=== PATIENT | female | born 1930 | race Caucasian/White ===

== ENCOUNTER 2017-11-11 14:58 | Inpatient (IN) | payer MEDICARE, BC ==
[~2017-11-11] VITALS: Ht 152.4 cm; Wt 47.0 kg
[2017-11-11] MEDS ORDERED: normal saline 1000ML IV soln IVB ONE (15:10)
[2017-11-11 15:31] LABS: BASOPHILS % (AUTO) 0.4 % (0-1); EOSINOPHILS # (AUTO) 0.3 X10'3 (0-0.9); EOSINOPHILS % (AUTO) 3.9 % (0-6); HEMATOCRIT 35.7 % (35.0-45.0); HEMOGLOBIN 11.7 g/dl (12.0-16.0); LYMPHOCYTES # (AUTO) 0.9 X10'3 (1.1-4.8); LYMPHOCYTES % (AUTO) 13.9 % (21-51); MEAN CORPUSCULAR HEMOGLOBIN 23.9 PG (27.0-31.0); MEAN CORPUSCULAR HGB CONC 32.8 % (33.0-36.5); MEAN CORPUSCULAR VOLUME 73.1 FL (78-98); MEAN PLATELET VOLUME 8.8 FL (7.4-10.4); MONOCYTES # (AUTO) 0.6 X10'3 (0-0.9); MONOCYTES % (AUTO) 9.5 % (2-12); NEUTROPHILS # (AUTO) 4.8 X10'3 (1.8-7.7); NEUTROPHILS % (AUTO) 72.3 % (42-75); PLATELET COUNT 327 X10'3 (140-440); RED BLOOD COUNT 4.88 X10'6 (4.20-5.60); RED CELL DISTRIBUTION WIDTH 17.1 % (11.5-14.5); WHITE BLOOD COUNT 6.7 X10'3 (4.5-11.0)
[2017-11-11 15:44] LABS: ALANINE AMINOTRANSFERASE 7 U/L (12-78); ALBUMIN 2.1 G/DL (3.4-5.0); ALBUMIN/GLOBULIN RATIO 0.5 (1.1-1.5); ALKALINE PHOSPHATASE 66 IU/L (46-116); ANION GAP 8 (8-16); ASPARTATE AMINO TRANSFERASE 15 U/L (10-37); BILIRUBIN,TOTAL 0.3 MG/DL (0.1-1.0); BLOOD UREA NITROGEN 25 MG/DL (7-18); BUN/CREATININE RATIO 28.1 (6.6-38.0); CALCIUM 8.6 MG/DL (8.5-10.1); CHLORIDE 103 MMOL/L (99-107); CREATININE 0.89 MG/DL (0.40-0.90); GLUCOSE 140 MG/DL (70-104); SODIUM 143 MMOL/L (135-145); TOTAL CARBON DIOXIDE 32.4 MMOL/L (24-32); eGFR 60 ML/MIN
[2017-11-11] MEDS ORDERED: NO HOME MEDS (15:45)
[2017-11-11] MEDS ORDERED: potassium Cl 20 mEq SR tablet PO ONE (16:05)
[2017-11-11] MEDS ORDERED: magnesium 1gm/100ml D5W IVPB 100 ML IV PRN (17:35)
[2017-11-11] MEDS ORDERED: acetaminophen 325mg tablet PO PRN ×2 (17:35)
[2017-11-11] MEDS ORDERED: magnesium 4gm in 100ml NS 100 ML IV PRN (17:35)
[2017-11-11] MEDS ORDERED: ondansetron/PF 4mg/2ml inj IV PRN (17:35)
[2017-11-11] MEDS ORDERED: Potassium Cl inj 20 MEQ in normal saline 1000ml 990 ML IV SCH (17:35)
[2017-11-11] MEDS ORDERED: magnesium Cl slow-release 64mg tablet PO PRN (17:35)
[2017-11-11] MEDS ORDERED: potassium Cl 20 mEq SR tablet PO PRN ×2 (17:35)
[2017-11-11] MEDS ORDERED: potassium Cl 40MEQ/NS 500ml 500 ML IV PRN ×2 (17:35)
[2017-11-11] MEDS ORDERED: mag hydrox/Alum hydrox/simeth 30ml oral suspension PO PRN (17:35)
[2017-11-11] MEDS ORDERED: magnesium hydroxide 30ml (MOM) UD suspension PO PRN (17:35)
[2017-11-11 20:30] VITALS: BP 188/78
[2017-11-11] MEDS ORDERED: temazepam 15mg capsule PO PRN (21:00)
[2017-11-11] MEDS: potassium Cl 20mEq in NS 1,000 ML IV SCH (21:13)
[2017-11-11 21:15] VITALS: BP 174/70
[2017-11-11 22:00] VITALS: BP 137/79
[2017-11-11 23:00] VITALS: BP 152/70
[2017-11-12 05:40] LABS: HEMATOCRIT 34.2 % (35.0-45.0); HEMOGLOBIN 11.1 g/dl (12.0-16.0); MEAN CORPUSCULAR HGB CONC 32.5 % (33.0-36.5); MEAN CORPUSCULAR VOLUME 73.8 FL (78-98); MEAN PLATELET VOLUME 9.2 FL (7.4-10.4); PLATELET COUNT 241 X10'3 (140-440); RED BLOOD COUNT 4.62 X10'6 (4.20-5.60); RED CELL DISTRIBUTION WIDTH 17.2 % (11.5-14.5); WHITE BLOOD COUNT 5.5 X10'3 (4.5-11.0)
[2017-11-12 06:10] LABS: ANION GAP 11 (8-16); BLOOD UREA NITROGEN 20 MG/DL (7-18); BUN/CREATININE RATIO 24.7 (6.6-38.0); CALCIUM 8.3 MG/DL (8.5-10.1); CHLORIDE 109 MMOL/L (99-107); CREATININE 0.81 MG/DL (0.40-0.90); GLUCOSE 103 MG/DL (70-104); MAGNESIUM 1.7 MG/DL (1.5-2.4); SODIUM 146 MMOL/L (135-145); eGFR 67 ML/MIN
[2017-11-12 06:57] LABS: HEMOGLOBIN A1C 6.9 % (4.5-6.2)
[2017-11-12 07:27] VITALS: BP 138/91
[2017-11-12] MEDS: K and/or MAG REPLACEMENT MC SCH (08:00)
[2017-11-12] MEDS ORDERED: levoFLOXACIN-Levaquin 500mg/D5 100 ML IV SCH (08:50)
[2017-11-12 11:56] VITALS: BP 154/74
[2017-11-12] MEDS: potassium Cl 20mEq in NS 1,000 ML IV SCH (13:01)
[2017-11-12] MEDS: levoFLOXACIN 500mg tablet PO SCH (16:18)
[2017-11-12 20:00] VITALS: BP 123/56
[2017-11-13] VITALS: BP 137/52
[2017-11-13 06:02] LABS: ALBUMIN 1.9 G/DL (3.4-5.0); ANION GAP 8 (8-16); BLOOD UREA NITROGEN 15 MG/DL (7-18); BUN/CREATININE RATIO 23.4 (6.6-38.0); CALCIUM 7.8 MG/DL (8.5-10.1); CHLORIDE 105 MMOL/L (99-107); CREATININE 0.64 MG/DL (0.40-0.90); GLUCOSE 125 MG/DL (70-104); MAGNESIUM 1.5 MG/DL (1.5-2.4); POTASSIUM 4.1 MMOL/L (3.5-5.1); SODIUM 139 MMOL/L (135-145); eGFR 88 ML/MIN
[2017-11-13 06:09] LABS: BASOPHILS % (AUTO) 0.1 % (0-1); EOSINOPHILS # (AUTO) 0.2 X10'3 (0-0.9); EOSINOPHILS % (AUTO) 3.7 % (0-6); HEMATOCRIT 30.1 % (35.0-45.0); HEMOGLOBIN 9.6 g/dl (12.0-16.0); LYMPHOCYTES # (AUTO) 0.7 X10'3 (1.1-4.8); LYMPHOCYTES % (AUTO) 11.7 % (21-51); MEAN CORPUSCULAR HEMOGLOBIN 23.5 PG (27.0-31.0); MEAN CORPUSCULAR VOLUME 73.3 FL (78-98); MEAN PLATELET VOLUME 9.1 FL (7.4-10.4); MONOCYTES # (AUTO) 0.7 X10'3 (0-0.9); MONOCYTES % (AUTO) 12.3 % (2-12); NEUTROPHILS # (AUTO) 4.4 X10'3 (1.8-7.7); NEUTROPHILS % (AUTO) 72.2 % (42-75); PLATELET COUNT 260 X10'3 (140-440); RED BLOOD COUNT 4.11 X10'6 (4.20-5.60); RED CELL DISTRIBUTION WIDTH 17.1 % (11.5-14.5)
[2017-11-13 06:45] VITALS: BP 128/53
[2017-11-13] MEDS: K and/or MAG REPLACEMENT MC SCH (07:23)
[2017-11-13 11:00] VITALS: BP 106/51
[2017-11-13] MEDS: levoFLOXACIN 500mg tablet PO SCH (11:19)
[2017-11-13 18:00] VITALS: BP 130/51
[2017-11-13] MEDS: lactobacillus rhamnosus 10,000 MMU CELLS/CAPSULE PO SCH (19:23)
[2017-11-14] VITALS: BP 126/78
[2017-11-14 06:30] LABS: ALBUMIN 1.9 G/DL (3.4-5.0); ANION GAP 9 (8-16); BLOOD UREA NITROGEN 14 MG/DL (7-18); BUN/CREATININE RATIO 18.9 (6.6-38.0); CALCIUM 8.1 MG/DL (8.5-10.1); CHLORIDE 106 MMOL/L (99-107); CREATININE 0.74 MG/DL (0.40-0.90); GLUCOSE 90 MG/DL (70-104); MAGNESIUM 1.6 MG/DL (1.5-2.4); POTASSIUM 3.6 MMOL/L (3.5-5.1); SODIUM 142 MMOL/L (135-145); TOTAL CARBON DIOXIDE 27.5 MMOL/L (24-32); eGFR 74 ML/MIN
[2017-11-14 06:44] LABS: HEMOGLOBIN 10.3 g/dl (12.0-16.0); MEAN CORPUSCULAR HEMOGLOBIN 23.9 PG (27.0-31.0); MEAN CORPUSCULAR HGB CONC 32.1 % (33.0-36.5); MEAN CORPUSCULAR VOLUME 74.6 FL (78-98); MEAN PLATELET VOLUME 9.6 FL (7.4-10.4); PLATELET COUNT 264 X10'3 (140-440); RED CELL DISTRIBUTION WIDTH 17.6 % (11.5-14.5); WHITE BLOOD COUNT 5.7 X10'3 (4.5-11.0)
[2017-11-14 07:00] VITALS: BP 148/80
[2017-11-14] MEDS: K and/or MAG REPLACEMENT MC SCH (07:54)
[2017-11-14] MEDS: lactobacillus rhamnosus 10,000 MMU CELLS/CAPSULE PO SCH ×2 (08:42→19:37)
[2017-11-14] MEDS: levoFLOXACIN 500mg tablet PO SCH (11:09)
[2017-11-14] MEDS ORDERED: traMADol 50MG tablet PO PRN (11:30)
[2017-11-14 18:00] VITALS: BP 108/50
[2017-11-15] VITALS: BP 133/57
[2017-11-15 06:17] LABS: ALBUMIN 1.9 G/DL (3.4-5.0); ANION GAP 8 (8-16); BLOOD UREA NITROGEN 15 MG/DL (7-18); BUN/CREATININE RATIO 18.1 (6.6-38.0); CALCIUM 8.6 MG/DL (8.5-10.1); CHLORIDE 105 MMOL/L (99-107); CREATININE 0.83 MG/DL (0.40-0.90); GLUCOSE 110 MG/DL (70-104); MAGNESIUM 1.6 MG/DL (1.5-2.4); POTASSIUM 3.4 MMOL/L (3.5-5.1); SODIUM 142 MMOL/L (135-145); TOTAL CARBON DIOXIDE 29.4 MMOL/L (24-32); eGFR 65 ML/MIN
[2017-11-15 06:22] LABS: HEMATOCRIT 32.9 % (35.0-45.0); HEMOGLOBIN 10.7 g/dl (12.0-16.0); MEAN CORPUSCULAR HGB CONC 32.5 % (33.0-36.5); MEAN CORPUSCULAR VOLUME 73.7 FL (78-98); MEAN PLATELET VOLUME 9.3 FL (7.4-10.4); PLATELET COUNT 273 X10'3 (140-440); RED BLOOD COUNT 4.47 X10'6 (4.20-5.60); RED CELL DISTRIBUTION WIDTH 17.5 % (11.5-14.5); WHITE BLOOD COUNT 5.9 X10'3 (4.5-11.0)
[2017-11-15 07:00] VITALS: BP 134/65
[2017-11-15] MEDS: lactobacillus rhamnosus 10,000 MMU CELLS/CAPSULE PO SCH ×2 (07:38→19:31)
[2017-11-15] MEDS: enoxaparin 40mg/0.4ml syringe SUBCUT SCH (07:38)
[2017-11-15] MEDS: K and/or MAG REPLACEMENT MC SCH (08:00)
[2017-11-15] MEDS ORDERED: potassium Cl 20 mEq SR tablet PO STA (11:48)
[2017-11-15 12:37] VITALS: BP 145/64
[2017-11-15] MEDS ORDERED: levoFLOXACIN 500mg tablet PO ONE (12:55)
[2017-11-15 18:00] VITALS: BP 120/65
[2017-11-16] VITALS: BP_SYST 137; BP_DIAS 50; BP_DIAS 60
[2017-11-16 05:07] LABS: HEMATOCRIT 31.2 % (35.0-45.0); HEMOGLOBIN 10.1 g/dl (12.0-16.0); MEAN CORPUSCULAR HEMOGLOBIN 23.9 PG (27.0-31.0); MEAN CORPUSCULAR HGB CONC 32.3 % (33.0-36.5); PLATELET COUNT 271 X10'3 (140-440); RED BLOOD COUNT 4.22 X10'6 (4.20-5.60); RED CELL DISTRIBUTION WIDTH 17.7 % (11.5-14.5); WHITE BLOOD COUNT 5.6 X10'3 (4.5-11.0)
[2017-11-16 05:18] LABS: ALBUMIN 1.9 G/DL (3.4-5.0); ANION GAP 8 (8-16); BLOOD UREA NITROGEN 15 MG/DL (7-18); BUN/CREATININE RATIO 18.5 (6.6-38.0); CALCIUM 8.5 MG/DL (8.5-10.1); CHLORIDE 105 MMOL/L (99-107); CREATININE 0.81 MG/DL (0.40-0.90); GLUCOSE 113 MG/DL (70-104); MAGNESIUM 1.7 MG/DL (1.5-2.4); POTASSIUM 3.7 MMOL/L (3.5-5.1); SODIUM 143 MMOL/L (135-145); TOTAL CARBON DIOXIDE 30.3 MMOL/L (24-32); eGFR 67 ML/MIN
[2017-11-16 07:00] VITALS: BP 128/74
[2017-11-16] MEDS: K and/or MAG REPLACEMENT MC SCH (07:09)
[2017-11-16] MEDS: lactobacillus rhamnosus 10,000 MMU CELLS/CAPSULE PO SCH ×2 (08:19→20:15)
[2017-11-16] MEDS: enoxaparin 40mg/0.4ml syringe SUBCUT SCH (08:26)
[2017-11-16] MEDS ORDERED: levoFLOXACIN 500mg tablet PO SCH (11:00)
[2017-11-16 12:00] VITALS: BP 119/97
[2017-11-16 20:00] VITALS: BP 133/52
[2017-11-16 23:30] VITALS: BP 133/65
[2017-11-17 07:00] VITALS: BP 149/66
[2017-11-17] MEDS: K and/or MAG REPLACEMENT MC SCH (07:40)
[2017-11-17] MEDS: lactobacillus rhamnosus 10,000 MMU CELLS/CAPSULE PO SCH (08:44)
[2017-11-17] MEDS: enoxaparin 40mg/0.4ml syringe SUBCUT SCH (08:44)
[2017-11-17 11:00] VITALS: BP 103/41
[2017-11-17] MEDS ORDERED: levoFLOXACIN 250mg tablet PO SCH (11:00)
[2017-11-17] MEDS ORDERED: TRAM50TA2 PO (13:17)
== END 2017-11-17 13:40 | disposition home health service (06) | DRG 193 ==
LOC: ER 14:59 → ED HOLD 17:35 → EDBEDREQ 18:35 → SUR 3N 20:25
PROVIDERS: ADMIT Family Medicine; ATTEND Family Medicine
DX: J18.9 Pneumonia, unspecified organism (principal); E43 Unspecified severe protein-calorie malnutrition; J96.20 Acute and chronic respiratory failure, unspecified whether with hypoxia or hypercapnia; J44.0 Chronic obstructive pulmonary disease with (acute) lower respiratory infection; R62.7 Adult failure to thrive; D50.9 Iron deficiency anemia, unspecified; E11.22 Type 2 diabetes mellitus with diabetic chronic kidney disease; E78.5 Hyperlipidemia, unspecified; Z60.2 Problems related to living alone; F17.200 Nicotine dependence, unspecified, uncomplicated; I12.9 Hypertensive chronic kidney disease with stage 1 through stage 4 chronic kidney disease, or unspecified chronic kidney disease; N18.9 Chronic kidney disease, unspecified; E87.6 Hypokalemia; Z66 Do not resuscitate; Z90.49 Acquired absence of other specified parts of digestive tract; Z88.2 Allergy status to sulfonamides; Z91.041 Radiographic dye allergy status; Z91.018 Allergy to other foods; Z79.899 Other long term (current) drug therapy; Z85.05 Personal history of malignant neoplasm of liver; Z85.07 Personal history of malignant neoplasm of pancreas; Z68.20 Body mass index [BMI] 20.0-20.9, adult
CPT/HCPCS: 36415; 71045; 80048; 80053; 83036; 83735; 84443; 85025; 85027; 87070; 97110; 97116; 97162; 97530; 99285; A6212; J1650; J1956; J3480; J7030

== ENCOUNTER 2018-06-15 22:41 | Inpatient (IN) | payer MEDICARE, BC | END 2018-06-19 15:00 | LOC: PCU 3S 06-19 12:45 → ER 22:41 → PCU 3S 06-16 06:59 | DX: I13.0 Hypertensive heart and chronic kidney disease with heart failure and stage 1 through stage 4 chronic kidney disease, or unspecified chronic kidney disease (principal); I50.31 Acute diastolic (congestive) heart failure; E43 Unspecified severe protein-calorie malnutrition; J96.00 Acute respiratory failure, unspecified whether with hypoxia or hypercapnia; N18.9 Chronic kidney disease, unspecified; E11.22 Type 2 diabetes mellitus with diabetic chronic kidney disease ==

== ENCOUNTER 2019-01-22 16:28 | Inpatient (IN) | payer MEDICARE, BC ==
[~2019-01-22] VITALS: Ht 154.9 cm; Wt 40.9 kg
[~2019-01-22 16:28] MED LIST: ACET-1017 PO; ACET-2319 PO; BENZ1LOZ42 PO; BISA5TAB10 PO; BISM262O25 PO; DULO-31 PO; FERR325T28 PO; GUAI118S42 PO; LOPE2CAP PO; MAGN400O6 PO; MECL12.584 PO; TRAM50TA2 PO; VITC500T PO
[2019-01-22 17:48] LABS: BASOPHILS % (AUTO) 0.3 % (0-1); EOSINOPHILS % (AUTO) 0.3 % (0-6); HEMOGLOBIN 13.3 g/dl (12.0-16.0); LYMPHOCYTES # (AUTO) 1.2 X10'3 (1.1-4.8); LYMPHOCYTES % (AUTO) 17.3 % (21-51); MEAN CORPUSCULAR HEMOGLOBIN 29.5 PG (27.0-31.0); MEAN CORPUSCULAR HGB CONC 34.1 g/dL (33.0-36.5); MEAN CORPUSCULAR VOLUME 86.5 FL (78-98); MEAN PLATELET VOLUME 8.3 FL (7.4-10.4); MONOCYTES # (AUTO) 0.7 X10'3 (0-0.9); MONOCYTES % (AUTO) 9.8 % (2-12); NEUTROPHILS % (AUTO) 72.3 % (42-75); PLATELET COUNT 204 X10'3 (140-440); RED BLOOD COUNT 4.51 X10'6 (4.20-5.60); WHITE BLOOD COUNT 6.9 X10'3 (4.5-11.0)
[2019-01-22 17:54] LABS: PARTIAL THROMBOPLASTIN TIME 30 SECONDS (22-32)
[2019-01-22] MEDS ORDERED: levoFLOXACIN-Levaquin 750MG/D5 150 ML IV STA (18:05)
[2019-01-22] MEDS ORDERED: normal saline 1000ML IV soln IV ONE (18:05)
[2019-01-22 18:07] LABS: ALANINE AMINOTRANSFERASE 11 U/L (12-78); ALBUMIN 2.9 G/DL (3.4-5.0); ALBUMIN/GLOBULIN RATIO 0.7 (1.1-1.5); ALKALINE PHOSPHATASE 79 IU/L (46-116); ANION GAP 8 (8-16); ASPARTATE AMINO TRANSFERASE 6 U/L (10-37); BILIRUBIN,TOTAL 0.4 MG/DL (0.1-1.0); BLOOD UREA NITROGEN 18 MG/DL (7-18); BUN/CREATININE RATIO 20.9 (6.6-38.0); CHLORIDE 104 MMOL/L (99-107); CREATININE 0.86 MG/DL (0.40-0.90); GLUCOSE 104 MG/DL (70-104); POTASSIUM 3.7 MMOL/L (3.5-5.1); SODIUM 140 MMOL/L (135-145); TOTAL CARBON DIOXIDE 28.2 MMOL/L (24-32); TOTAL PROTEIN 6.8 G/DL (6.4-8.2); eGFR 62 ML/MIN
[2019-01-22 18:08] LABS: MAGNESIUM 1.8 MG/DL (1.5-2.4); PHOSPHORUS 3.3 MG/DL (2.3-4.5)
--- NOTE | 2019-01-22 20:19 | NUR ---
SATS 99% ON 2 LITERS. DAUGHTER AT BEDSIDE. DNR AND FALL BAND PLACED. AWAITING HOSPITALIST
[2019-01-22] MEDS ORDERED: magnesium hydroxide 30ml (MOM) UD suspension PO PRN (21:20)
[2019-01-22] MEDS ORDERED: mag hydrox/Alum hydrox/simeth 30ml oral suspension PO PRN (21:20)
[2019-01-22] MEDS ORDERED: ondansetron/PF 4mg/2ml inj IV PRN (21:20)
[2019-01-22] MEDS ORDERED: acetaminophen 325mg tablet PO PRN (21:20)
[2019-01-22] MEDS ORDERED: albuterol 2.5 MG/3 ML nebule NEB PRN (21:25)
[2019-01-22] MEDS: normal saline 1000ml 1,000 ML IV SCH (21:43)
--- NOTE | 2019-01-22 22:07 | NUR ---
report Tami GOULD
[2019-01-23] VITALS: BP 138/52
[2019-01-23 05:18] LABS: BASOPHILS % (AUTO) 0.5 % (0-1); EOSINOPHILS # (AUTO) 0.1 X10'3 (0-0.9); EOSINOPHILS % (AUTO) 1.5 % (0-6); HEMATOCRIT 34.4 % (35.0-45.0); HEMOGLOBIN 11.8 g/dl (12.0-16.0); LYMPHOCYTES # (AUTO) 1.3 X10'3 (1.1-4.8); LYMPHOCYTES % (AUTO) 25.6 % (21-51); MEAN CORPUSCULAR HEMOGLOBIN 30.2 PG (27.0-31.0); MEAN CORPUSCULAR HGB CONC 34.2 g/dL (33.0-36.5); MEAN CORPUSCULAR VOLUME 88.4 FL (78-98); MEAN PLATELET VOLUME 8.5 FL (7.4-10.4); MONOCYTES # (AUTO) 0.7 X10'3 (0-0.9); MONOCYTES % (AUTO) 14.5 % (2-12); NEUTROPHILS % (AUTO) 57.9 % (42-75); PLATELET COUNT 170 X10'3 (140-440); RED BLOOD COUNT 3.89 X10'6 (4.20-5.60); RED CELL DISTRIBUTION WIDTH 14.8 % (11.5-14.5); WHITE BLOOD COUNT 5.1 X10'3 (4.5-11.0)
[2019-01-23 05:24] LABS: ALANINE AMINOTRANSFERASE 8 U/L (12-78); ALBUMIN 2.3 G/DL (3.4-5.0); ALBUMIN/GLOBULIN RATIO 0.7 (1.1-1.5); ALKALINE PHOSPHATASE 66 IU/L (46-116); ANION GAP 8 (8-16); ASPARTATE AMINO TRANSFERASE 16 U/L (10-37); BILIRUBIN,TOTAL 0.3 MG/DL (0.1-1.0); BLOOD UREA NITROGEN 16 MG/DL (7-18); BUN/CREATININE RATIO 22.9 (6.6-38.0); CALCIUM 8.4 MG/DL (8.5-10.1); CHLORIDE 107 MMOL/L (99-107); GLUCOSE 71 MG/DL (70-104); POTASSIUM 3.6 MMOL/L (3.5-5.1); SODIUM 140 MMOL/L (135-145); TOTAL CARBON DIOXIDE 24.6 MMOL/L (24-32); TOTAL PROTEIN 5.8 G/DL (6.4-8.2); eGFR 79 ML/MIN
--- NOTE | 2019-01-23 06:08 | NUR ---
Problems reprioritized. Patient report given, questions answered & plan of care reviewed with BRYANNA Vargas.
[2019-01-23 07:00] VITALS: BP 144/58
--- NOTE | 2019-01-23 07:34 | NUR ---
Blood sugar checked and 69, no MD list out at the moment, no protocol ordered at this time, gave pt. 120ml juice. Asymptomatic besides drowsiness. will cont. to monitor and notify .
--- NOTE | 2019-01-23 07:41 | NUR ---
PAGER ID: [phone] MESSAGE: Aliyahshira Sharp [id number] Good morning! Anais is your nurse today! pt. BG is 69. gave juice- no protocol ordered. Thank you- [phone]
[2019-01-23] MEDS: CefTRIAXone/D5W-Rocephin 1gm 50 ML IV SCH (08:40)
[2019-01-23] MEDS: ascorbic acid 500mg tablet PO SCH ×2 (08:40→20:40)
[2019-01-23] MEDS: duloxetine 30mg CAPSULE.DR PO SCH (08:40)
[2019-01-23] MEDS: heparin, porcine 5000 units/ml vial SQ SCH ×2 (08:41→20:40)
[2019-01-23] MEDS: ferrous sulfate 325mg tablet PO SCH ×2 (08:41→20:40)
[2019-01-23 11:00] VITALS: BP 159/66
[2019-01-23] MEDS ORDERED: nystatin 15 GM powder TP PRN (15:05)
[2019-01-23] MEDS ORDERED: dextrose ORAL solution 15 GM/59 ML bottle PO PRN ×2 (16:20)
[2019-01-23] MEDS ORDERED: insulin Lispro (HumaLOG) vial - multi-dose SQ SCH (16:20)
[2019-01-23] MEDS ORDERED: glucagon, human recombinant 1mg kit SUBCUT PRN (16:20)
[2019-01-23] MEDS ORDERED: dextrose 50%-water 50ml dispensing syringe IV PRN ×2 (16:20)
[2019-01-23] MEDS ORDERED: MESSAGE TO PHARMACY PO ONE (16:20)
--- NOTE | 2019-01-23 16:24 | NUR ---
Yellow crusty drainage in bilateral eyes. Eyes washed with washcloth. MD made aware- orders to continue to monitor eyes for drainage.
[2019-01-23 18:00] VITALS: BP 109/58
--- NOTE | 2019-01-23 18:19 | NUR ---
Received report from BRYANNA Manzo. Patient is resting comfortably on 2L NC, in no apparent distress. Call light and items of frequent use within reach. Will continue to monitor.
--- NOTE | 2019-01-23 18:20 | NUR ---
Problems reprioritized. Patient report given, questions answered & plan of care reviewed with Samara GOULD. Oncoming RN made aware that pt. requires assistance while eating.
[2019-01-23] MEDS: insulin glargine (Lantus) pen - multi-dose SQ SCH (21:00)
[2019-01-23] MEDS: normal saline 1000ml 1,000 ML IV SCH (22:18)
[2019-01-24] VITALS: BP 154/72
[2019-01-24 04:47] LABS: BASOPHILS % (AUTO) 0.4 % (0-1); EOSINOPHILS # (AUTO) 0.1 X10'3 (0-0.9); EOSINOPHILS % (AUTO) 2.2 % (0-6); HEMATOCRIT 34.4 % (35.0-45.0); HEMOGLOBIN 11.7 g/dl (12.0-16.0); LYMPHOCYTES # (AUTO) 1.6 X10'3 (1.1-4.8); LYMPHOCYTES % (AUTO) 29.3 % (21-51); MEAN CORPUSCULAR HGB CONC 34.1 g/dL (33.0-36.5); MEAN CORPUSCULAR VOLUME 87.9 FL (78-98); MEAN PLATELET VOLUME 8.5 FL (7.4-10.4); MONOCYTES # (AUTO) 0.7 X10'3 (0-0.9); MONOCYTES % (AUTO) 13.5 % (2-12); NEUTROPHILS # (AUTO) 2.9 X10'3 (1.8-7.7); NEUTROPHILS % (AUTO) 54.6 % (42-75); PLATELET COUNT 184 X10'3 (140-440); RED BLOOD COUNT 3.91 X10'6 (4.20-5.60); RED CELL DISTRIBUTION WIDTH 14.8 % (11.5-14.5); WHITE BLOOD COUNT 5.4 X10'3 (4.5-11.0)
[2019-01-24 04:57] LABS: ALANINE AMINOTRANSFERASE 7 U/L (12-78); ALBUMIN 2.2 G/DL (3.4-5.0); ALBUMIN/GLOBULIN RATIO 0.7 (1.1-1.5); ALKALINE PHOSPHATASE 61 IU/L (46-116); ANION GAP 10 (8-16); ASPARTATE AMINO TRANSFERASE 12 U/L (10-37); BILIRUBIN,TOTAL 0.3 MG/DL (0.1-1.0); BLOOD UREA NITROGEN 16 MG/DL (7-18); BUN/CREATININE RATIO 22.2 (6.6-38.0); CALCIUM 8.1 MG/DL (8.5-10.1); CHLORIDE 107 MMOL/L (99-107); CREATININE 0.72 MG/DL (0.40-0.90); GLUCOSE 95 MG/DL (70-104); SODIUM 142 MMOL/L (135-145); TOTAL CARBON DIOXIDE 24.7 MMOL/L (24-32); TOTAL PROTEIN 5.5 G/DL (6.4-8.2); eGFR 76 ML/MIN
[2019-01-24] MEDS ORDERED: potassium CL 10mEq/100ml bag 100 ML IV PRN (05:20)
[2019-01-24 08:00] VITALS: BP 132/64
[2019-01-24] MEDS: lactose-reduced food (Ensure Enlive) - 237ml bottle PO SCH ×3 (08:00→18:00)
[2019-01-24 08:03] LABS: MAGNESIUM 1.6 MG/DL (1.5-2.4)
[2019-01-24] MEDS: ascorbic acid 500mg tablet PO SCH ×2 (08:38→20:05)
[2019-01-24] MEDS: CefTRIAXone/D5W-Rocephin 1gm 50 ML IV SCH (08:38)
[2019-01-24] MEDS: duloxetine 30mg CAPSULE.DR PO SCH (08:38)
[2019-01-24] MEDS: ferrous sulfate 325mg tablet PO SCH ×2 (08:38→20:05)
[2019-01-24] MEDS: heparin, porcine 5000 units/ml vial SQ SCH ×2 (08:38→20:06)
[2019-01-24] MEDS: potassium Cl 20 mEq SR tablet PO PRN ×4 (08:39→17:36)
[2019-01-24] MEDS: K and/or MAG REPLACEMENT MC SCH ×2 (08:41→18:50)
--- NOTE | 2019-01-24 09:59 | NUR ---
PT'S DAUGHTER AND POA IN ROOM REQUESTING TO SPEAK AND CONNECT WITH MD. MD JUNE NOTIFIED. STATES THAT SHE WILL MEET WITH FAMILY AT 1045. FAMILY MADE AWARE.
[2019-01-24 11:00] VITALS: BP 122/52
[2019-01-24] MEDS: azithromycin/NS 500mg/250ml 250 ML IV SCH (11:09)
--- NOTE | 2019-01-24 15:46 | NUR ---
Oral consult: Oral 9; skin intact. Addendum: 01/24/19 at [address] Amended: Links added.
[2019-01-24 18:00] VITALS: BP 140/56
--- NOTE | 2019-01-24 18:31 | NUR ---
Problems reprioritized. Patient report given, questions answered & plan of care reviewed with Desiree GOULD. Pt. awake, alert, talking with visitor daughter. Eating dinner. Addendum: 01/24/19 at 1833 by Anais Mckay RN Gave report to Samara GOULD.
--- NOTE | 2019-01-24 18:54 | NUR ---
Patient in room [facility]. I have received report from Daya GOULD and had the opportunity to ask questions and assume patient care.
[2019-01-24] MEDS: lactobacillus rhamnosus 10,000 MMU CELLS/CAPSULE PO SCH (20:05)
[2019-01-24] MEDS: insulin glargine (Lantus) pen - multi-dose SQ SCH (21:00)
--- NOTE | 2019-01-24 23:20 | NUR ---
pt reports an 8/10 pain, reports this is normal for her and 8/10 is a tolerable pain level, refused pain medications.
[2019-01-24 23:49] VITALS: BP 155/48
--- NOTE | 2019-01-25 06:35 | NUR ---
Problems reprioritized. Patient report given, questions answered & plan of care reviewed with Fiorella GOULD.
--- NOTE | 2019-01-25 06:39 | NUR ---
I have reviewed and agree with all interventions, assessments performed and documented by BRYANNA Dickerson.
--- NOTE | 2019-01-25 06:50 | NUR ---
Patient in room [facility]. I have received report from Samara GOULD and had the opportunity to ask questions and assume patient care.
[2019-01-25 07:00] VITALS: BP 137/45
[2019-01-25] MEDS: CefTRIAXone/D5W-Rocephin 1gm 50 ML IV SCH (07:19)
[2019-01-25] MEDS: azithromycin/NS 500mg/250ml 250 ML IV SCH (07:54)
[2019-01-25] MEDS: K and/or MAG REPLACEMENT MC SCH ×2 (08:00→20:00)
[2019-01-25] MEDS: lactose-reduced food (Ensure Enlive) - 237ml bottle PO SCH ×3 (08:52→20:00)
[2019-01-25] MEDS: duloxetine 30mg CAPSULE.DR PO SCH (08:53)
[2019-01-25] MEDS: lactobacillus rhamnosus 10,000 MMU CELLS/CAPSULE PO SCH ×2 (08:53→20:35)
[2019-01-25] MEDS: ascorbic acid 500mg tablet PO SCH ×2 (08:53→20:35)
[2019-01-25] MEDS: ferrous sulfate 325mg tablet PO SCH ×2 (08:53→20:35)
[2019-01-25] MEDS: heparin, porcine 5000 units/ml vial SQ SCH ×2 (08:53→20:36)
[2019-01-25 11:00] VITALS: BP 161/78
[2019-01-25 12:17] LABS: BASOPHILS % (AUTO) 0.7 % (0-1); EOSINOPHILS # (AUTO) 0.1 X10'3 (0-0.9); EOSINOPHILS % (AUTO) 2.9 % (0-6); HEMATOCRIT 35.9 % (35.0-45.0); LYMPHOCYTES # (AUTO) 1.5 X10'3 (1.1-4.8); LYMPHOCYTES % (AUTO) 30.3 % (21-51); MEAN CORPUSCULAR HEMOGLOBIN 29.2 PG (27.0-31.0); MEAN CORPUSCULAR HGB CONC 33.5 g/dL (33.0-36.5); MEAN PLATELET VOLUME 8.2 FL (7.4-10.4); MONOCYTES # (AUTO) 0.5 X10'3 (0-0.9); MONOCYTES % (AUTO) 9.7 % (2-12); NEUTROPHILS # (AUTO) 2.8 X10'3 (1.8-7.7); NEUTROPHILS % (AUTO) 56.4 % (42-75); PLATELET COUNT 220 X10'3 (140-440); RED BLOOD COUNT 4.12 X10'6 (4.20-5.60); RED CELL DISTRIBUTION WIDTH 14.7 % (11.5-14.5)
[2019-01-25 12:30] LABS: ALANINE AMINOTRANSFERASE 11 U/L (12-78); ALBUMIN 2.4 G/DL (3.4-5.0); ALBUMIN/GLOBULIN RATIO 0.7 (1.1-1.5); ALKALINE PHOSPHATASE 66 IU/L (46-116); ANION GAP 7 (8-16); ASPARTATE AMINO TRANSFERASE 15 U/L (10-37); BILIRUBIN,TOTAL 0.2 MG/DL (0.1-1.0); BLOOD UREA NITROGEN 13 MG/DL (7-18); BUN/CREATININE RATIO 18.1 (6.6-38.0); CALCIUM 8.5 MG/DL (8.5-10.1); CHLORIDE 107 MMOL/L (99-107); CREATININE 0.72 MG/DL (0.40-0.90); GLUCOSE 79 MG/DL (70-104); MAGNESIUM 1.6 MG/DL (1.5-2.4); POTASSIUM 4.8 MMOL/L (3.5-5.1); SODIUM 140 MMOL/L (135-145); TOTAL CARBON DIOXIDE 26.3 MMOL/L (24-32); eGFR 76 ML/MIN
[2019-01-25] MEDS ORDERED: albuterol 2.5 MG/3 ML nebule NEB PRN (15:25)
[2019-01-25] MEDS ORDERED: methylPREDNISolone sod succ 125mg/2ml vial IV ONE (15:25)
[2019-01-25] MEDS ORDERED: ipratropium 0.5 MG/2.5ML nebule IH PRN (15:25)
--- NOTE | 2019-01-25 18:30 | NUR ---
Problems reprioritized. Patient report given, questions answered & plan of care reviewed with Tami Calzada RN.
--- NOTE | 2019-01-25 18:40 | NUR ---
Patient in room [facility]. I have received report from BRYANNA Mckenzie and had the opportunity to ask questions and assume patient care. Addendum: 01/25/19 at 1840 by Lena Stevenson RN Amended: Links added.
[2019-01-25 20:00] VITALS: BP 122/65
[2019-01-25] MEDS: insulin glargine (Lantus) pen - multi-dose SQ SCH (21:00)
[2019-01-26 00:27] VITALS: BP 102/61
[2019-01-26 06:24] LABS: BASOPHILS % (AUTO) 0.3 % (0-1); EOSINOPHILS % (AUTO) 0.1 % (0-6); HEMATOCRIT 39.6 % (35.0-45.0); HEMOGLOBIN 13.5 g/dl (12.0-16.0); LYMPHOCYTES % (AUTO) 24.8 % (21-51); MEAN CORPUSCULAR HEMOGLOBIN 29.4 PG (27.0-31.0); MEAN CORPUSCULAR VOLUME 86.4 FL (78-98); MEAN PLATELET VOLUME 8.3 FL (7.4-10.4); MONOCYTES # (AUTO) 0.1 X10'3 (0-0.9); MONOCYTES % (AUTO) 2.4 % (2-12); NEUTROPHILS % (AUTO) 72.4 % (42-75); PLATELET COUNT 239 X10'3 (140-440); RED BLOOD COUNT 4.58 X10'6 (4.20-5.60); RED CELL DISTRIBUTION WIDTH 14.6 % (11.5-14.5); WHITE BLOOD COUNT 4.2 X10'3 (4.5-11.0)
--- NOTE | 2019-01-26 06:39 | NUR ---
Patient in room [facility]. I have received report from Tami Calzada RN and had the opportunity to ask questions and assume patient care.
--- NOTE | 2019-01-26 06:45 | NUR ---
Problems reprioritized. Patient report given, questions answered & plan of care reviewed with BRYANNA Barros.
[2019-01-26 06:58] LABS: ALANINE AMINOTRANSFERASE 8 U/L (12-78); ALBUMIN 2.5 G/DL (3.4-5.0); ALBUMIN/GLOBULIN RATIO 0.7 (1.1-1.5); ALKALINE PHOSPHATASE 70 IU/L (46-116); ANION GAP 9 (8-16); ASPARTATE AMINO TRANSFERASE 13 U/L (10-37); BILIRUBIN,TOTAL 0.3 MG/DL (0.1-1.0); BLOOD UREA NITROGEN 17 MG/DL (7-18); BUN/CREATININE RATIO 22.4 (6.6-38.0); CHLORIDE 106 MMOL/L (99-107); CREATININE 0.76 MG/DL (0.40-0.90); GLUCOSE 164 MG/DL (70-104); MAGNESIUM 1.8 MG/DL (1.5-2.4); POTASSIUM 4.4 MMOL/L (3.5-5.1); SODIUM 141 MMOL/L (135-145); TOTAL CARBON DIOXIDE 26.3 MMOL/L (24-32); TOTAL PROTEIN 6.3 G/DL (6.4-8.2); eGFR 72 ML/MIN
[2019-01-26 07:00] VITALS: BP 128/71
[2019-01-26] MEDS: CefTRIAXone/D5W-Rocephin 1gm 50 ML IV SCH (07:34)
[2019-01-26] MEDS: K and/or MAG REPLACEMENT MC SCH ×2 (08:00→20:00)
[2019-01-26] MEDS: lactose-reduced food (Ensure Enlive) - 237ml bottle PO SCH ×3 (08:00→19:00)
[2019-01-26] MEDS: lactobacillus rhamnosus 10,000 MMU CELLS/CAPSULE PO SCH ×2 (09:41→19:30)
[2019-01-26] MEDS: azithromycin 250mg tablet PO SCH (09:41)
[2019-01-26] MEDS: duloxetine 30mg CAPSULE.DR PO SCH (09:41)
[2019-01-26] MEDS: ascorbic acid 500mg tablet PO SCH ×2 (09:41→19:30)
[2019-01-26] MEDS: ferrous sulfate 325mg tablet PO SCH ×2 (09:41→19:30)
[2019-01-26] MEDS: heparin, porcine 5000 units/ml vial SQ SCH ×2 (09:42→19:30)
[2019-01-26 11:00] VITALS: BP 121/56
--- NOTE | 2019-01-26 18:26 | NUR ---
Patient in room [facility]. I have received report from BRYANNA Mckenzie and had the opportunity to ask questions and assume patient care. Addendum: 01/26/19 at 1826 by Lena Stevenson RN Amended: Links added.
--- NOTE | 2019-01-26 19:03 | NUR ---
Problems reprioritized. Patient report given, questions answered & plan of care reviewed with Tami Calzada RN.
[2019-01-26 20:00] VITALS: BP 184/68
[2019-01-26 20:34] VITALS: BP 120/47
[2019-01-26] MEDS: insulin glargine (Lantus) pen - multi-dose SQ SCH (21:00)
[2019-01-27] VITALS: BP 135/51
--- NOTE | 2019-01-27 05:20 | NUR ---
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
--- NOTE | 2019-01-27 06:14 | NUR ---
Problems reprioritized. Patient report given, questions answered & plan of care reviewed with BRYANNA Menon. Addendum: 01/27/19 at 0614 by Lena Stevenson RN Amended: Links added.
[2019-01-27 07:00] VITALS: BP 170/72
[2019-01-27] MEDS: heparin, porcine 5000 units/ml vial SQ SCH (07:11)
--- NOTE | 2019-01-27 07:15 | NUR ---
Patient in room [facility]. I have received report from RODRIGO Carlos RN and had the opportunity to ask questions and assume patient care.
[2019-01-27] MEDS: K and/or MAG REPLACEMENT MC SCH (07:38)
[2019-01-27] MEDS: lactose-reduced food (Ensure Enlive) - 237ml bottle PO SCH ×2 (08:00→13:00)
[2019-01-27 08:43] LABS: ALBUMIN 2.5 G/DL (3.4-5.0); ALBUMIN/GLOBULIN RATIO 0.8 (1.1-1.5); ALKALINE PHOSPHATASE 61 IU/L (46-116); ANION GAP 6 (8-16); ASPARTATE AMINO TRANSFERASE 5 U/L (10-37); BILIRUBIN,TOTAL 0.2 MG/DL (0.1-1.0); BLOOD UREA NITROGEN 20 MG/DL (7-18); BUN/CREATININE RATIO 26.3 (6.6-38.0); CALCIUM 8.6 MG/DL (8.5-10.1); CHLORIDE 108 MMOL/L (99-107); CREATININE 0.76 MG/DL (0.40-0.90); GLUCOSE 99 MG/DL (70-104); MAGNESIUM 1.7 MG/DL (1.5-2.4); POTASSIUM 4.2 MMOL/L (3.5-5.1); SODIUM 140 MMOL/L (135-145); TOTAL CARBON DIOXIDE 25.8 MMOL/L (24-32); TOTAL PROTEIN 5.7 G/DL (6.4-8.2); eGFR 72 ML/MIN
[2019-01-27 08:45] LABS: ALANINE AMINOTRANSFERASE < 6 U/L (12-78)
[2019-01-27 09:22] VITALS: BP 170/72
[2019-01-27 09:25] VITALS: BP 122/43
[2019-01-27] MEDS: duloxetine 30mg CAPSULE.DR PO SCH (09:34)
[2019-01-27] MEDS: azithromycin 250mg tablet PO SCH (09:35)
[2019-01-27] MEDS: ascorbic acid 500mg tablet PO SCH (09:35)
[2019-01-27] MEDS: lactobacillus rhamnosus 10,000 MMU CELLS/CAPSULE PO SCH (09:35)
[2019-01-27] MEDS: ferrous sulfate 325mg tablet PO SCH (09:35)
[2019-01-27] MEDS: CefTRIAXone/D5W-Rocephin 1gm 50 ML IV SCH (09:36)
[2019-01-27 10:19] LABS: BASOPHILS % (AUTO) 0.7 % (0-1); EOSINOPHILS # (AUTO) 0.1 X10'3 (0-0.9); EOSINOPHILS % (AUTO) 1.5 % (0-6); HEMATOCRIT 35.9 % (35.0-45.0); HEMOGLOBIN 12.1 g/dl (12.0-16.0); LYMPHOCYTES # (AUTO) 1.3 X10'3 (1.1-4.8); LYMPHOCYTES % (AUTO) 23.9 % (21-51); MEAN CORPUSCULAR HEMOGLOBIN 29.6 PG (27.0-31.0); MEAN CORPUSCULAR HGB CONC 33.7 g/dL (33.0-36.5); MEAN CORPUSCULAR VOLUME 87.9 FL (78-98); MEAN PLATELET VOLUME 8.3 FL (7.4-10.4); MONOCYTES # (AUTO) 0.5 X10'3 (0-0.9); MONOCYTES % (AUTO) 9.6 % (2-12); NEUTROPHILS # (AUTO) 3.4 X10'3 (1.8-7.7); NEUTROPHILS % (AUTO) 64.3 % (42-75); PLATELET COUNT 234 X10'3 (140-440); RED BLOOD COUNT 4.09 X10'6 (4.20-5.60); RED CELL DISTRIBUTION WIDTH 14.8 % (11.5-14.5); WHITE BLOOD COUNT 5.3 X10'3 (4.5-11.0)
[2019-01-27 11:00] VITALS: BP 167/63
[2019-01-27 11:48] LABS: GLUCOSE,BODY FLUID 105 MG/DL; LDH,BODY FLUID 67 U/L; TOTAL PROTEIN,BODY FLUID 2.1 G/DL
--- NOTE | 2019-01-27 11:55 | NUR ---
Initial: Pt admit with bilat PNA and for oxygenation with hydration and IV abx. Pt pending thoracentesis today. Pt on a CHO controlled diet documented with 25-50% PO intake and with fluctuating PO intake of ONS documented with 25% x 1 and 75% x 1 however up to 100% with dinner last night likely overall closely meeting nutrient needs. LBM 01/25. Pt pending d/c today per CM notes. Will continue to follow and monitor need for additional nutrition intervention. Recommendations: 1) Continue CHO controlled diet; consider diet liberalization if poor PO intake 2) Ensure Enlive TID 3) Bowel care PRN 4) Wt per rx Addendum: 01/27/19 at [address] Amended: Links added.
[2019-01-27 12:06] LABS: BF WBC COUNT 590 /CU MM (0-1000); BFAPPEAR HAZY; BFCOLOR YELLOW; BFVOLUME 60 ML
[2019-01-27 12:07] LABS: BF MESOTHELIAL CELLS FEW; BF RBC COUNT 1610 /CU MM; EOSINOPHILS,BODY FLUID 3 %; LYMPHOCYTES,BODY FLUID 81 %; MONOCYTES,BODY FLUID 6 %; NEUTROPHILS,BODY FLUID 10 %
--- NOTE | 2019-01-27 13:35 | NUR ---
I assisted pt to an upright position in her bed and her daughter is helping feed her some of her lunch. Pt states she is feeling less short of breath today. She is quite sleepy but arousable to voice.
[2019-01-27] MEDS ORDERED: AZI25OT PO (14:58)
[2019-01-27] MEDS ORDERED: ATR0.5NEB IH (14:58)
[2019-01-27] MEDS ORDERED: CEFD300C3 PO (14:58)
[2019-01-27] MEDS ORDERED: ALBU2.5V7 NEB (14:58)
== END 2019-01-27 15:06 | disposition home health service (06) | DRG 193 ==
LOC: ER 16:29 → ED HOLD 21:29 → SUR 3N 22:25
PROVIDERS: ADMIT Internal Medicine; ATTEND Internal Medicine
PROC: 0W9B3ZX Drainage of Left Pleural Cavity, Percutaneous Approach, Diagnostic (ICD-10-PCS; principal; 2019-01-27)
DX: J18.9 Pneumonia, unspecified organism (principal); G93.41 Metabolic encephalopathy; J44.0 Chronic obstructive pulmonary disease with (acute) lower respiratory infection; J91.8 Pleural effusion in other conditions classified elsewhere; E87.6 Hypokalemia; F03.90 Unspecified dementia, unspecified severity, without behavioral disturbance, psychotic disturbance, mood disturbance, and anxiety; R09.02 Hypoxemia; F32.9 Major depressive disorder, single episode, unspecified; Z66 Do not resuscitate; Z99.3 Dependence on wheelchair; Z91.041 Radiographic dye allergy status; Z88.2 Allergy status to sulfonamides; Z91.018 Allergy to other foods; Z87.891 Personal history of nicotine dependence
CPT/HCPCS: 32555; 36415; 71045; 80053; 82945; 82948; 83036; 83605; 83615; 83735; 83880; 84100; 84132; 84145; 84157; 85025; 85610; 85730; 87040; 87070; 87081; 89051; 92508; 92616; 93005; 93306; 94640; 94667; 94668; 94760; 96365; 97161; 97530; 99285; G0378; J0456; J0696; J1644; J1815; J1956; J2930; J7030